=== PATIENT | female | born 1995 | race Two or more races ===

== ENCOUNTER 2019-04-11 00:23 | Emergency (ER) | payer OTHER ==
[~2019-04-11] VITALS: Ht 165.1 cm; Wt 51.7 kg
[2019-04-11] MEDS ORDERED: ONDANSETRON ODT4 MG SL (06:10)
[2019-04-11] MEDS ORDERED: INTESTINEX680 M1 PO (06:10)
[2019-04-11] MEDS ORDERED: PEPCID AC20 MG PO (06:10)
[2019-04-11] MEDS ORDERED: PEDIALYTE1000 ML (07:05)
== END 2019-04-11 06:13 | disposition home or self-care (01) ==
LOC: ER 00:23
DX: K52.9 Noninfective gastroenteritis and colitis, unspecified (principal)

== ENCOUNTER 2019-06-09 12:16 | Outpatient (CLI) | payer OTHER ==
[~2019-06-09 12:16] MED LIST: INTESTINEX680 M1 PO; ONDANSETRON ODT4 MG SL; PEDIALYTE1000 ML; PEPCID AC20 MG PO
== END 2019-06-09 12:23 | disposition home or self-care (01) ==
LOC: EKG 12:16
DX: Z01.818 Encounter for other preprocedural examination (principal)